=== PATIENT | female | born 1945 | race Hispanic/Latino ===

== ENCOUNTER 2020-07-08 23:31 | Emergency (ER) | payer MEDICARE ==
[~2020-07-08] VITALS: Ht 320 cm; Wt 81.6 kg
[~2020-07-08 23:31] MED LIST: ACETAMINOPHEN-1 EAC4; ALPRAZOLAM0.5 MG; ASPIRIN EC81 MG PO; CARVEDILOL25 MG; CEFUROXIME250 MG PO; CIPRO250 MG PO; CLOPIDOGREL75 MG; COREG12.5 MG PO; DICYCLOMINE HCL10 MG; Diphenhydramine Hcl PO; FAMOTIDINE20 MG PO; FLAGYL250 MG; GABAPENTIN400 MG PO; GABAPENTIN800 MG; HYDRALAZINE HCL50 MG PO; METFORMIN HCL500 MG PO; METOCLOPRAMIDE10 MG PO; NIFEDIPINE ER30 M1 PO; NIFEDIPINE ER30 MG; NITRO-BID1 GM TOP; RANITIDINE HCL150 MG; SERTRALINE HCL100 MG; SPIRONOLACTONE50 MG; TIZANIDINE HCL4 MG; TRAZODONE HCL50 MG
[2020-07-08] MEDS ORDERED: ONDANSETRON HCL INJ 2MG/ML 2ML 2 MG/ML VIAL IV STA (23:38)
[2020-07-08] MEDS ORDERED: ASPIRIN 81 MG CHEW TAB PO ONE (23:45)
[2020-07-09 00:06] LABS: BASOPHILS # (AUTO) 0.1 (0.0-0.1); BASOPHILS % 0.7 % (0.0-1.0); EOSINOPHILS # (AUTO) 0.1 (0.0-0.4); EOSINOPHILS % 1.3 % (0.0-6.0); HEMATOCRIT 41.9 % (34.2-44.1); HEMOGLOBIN 14.3 g/dL (12.0-16.0); LYMPHOCYTES # (AUTO) 2.5 (1.0-3.2); LYMPHOCYTES % 32.9 % (18.0-39.1); MEAN CORPUSCULAR HEMOGLOBIN 29.4 pg (28-32); MEAN CORPUSCULAR HGB CONC 34.1 g/dL (31-35); MEAN CORPUSCULAR VOLUME 86.2 fL (81-99); MONOCYTES # (AUTO) 0.5 (0.2-0.8); NEUTROPHILS # (AUTO) 4.4 (2.1-6.9); NEUTROPHILS % 57.7 % (38.7-80.0); PLATELET COUNT 200 x10e3/uL (140-360); RED BLOOD COUNT 4.86 x10e6/uL (3.6-5.1); RED CELL DISTRIBUTION WIDTH 17.1 % (11.7-14.4)
[2020-07-09] MEDS ORDERED: ONDANSETRON HCL INJ 2MG/ML 2ML 2 MG/ML VIAL IV STA ×2 (00:08→00:16)
[2020-07-09 00:23] LABS: ALBUMIN/GLOBULIN RATIO 1.2 (0.8-2.0); ANION GAP 19.8 mmol/L (8-16); CALCIUM 9.7 mg/dL (8.4-10.2); CREATININE, SERUM 0.97 mg/dL (0.57-1.11); POTASSIUM 3.8 mmol/L (3.5-5.1)
[2020-07-09 00:25] LABS: CREATINE KINASE MB 1.3 ng/mL (0-5.0)
[2020-07-09] MEDS ORDERED: ONDANSETRON HCL INJ 2MG/ML 2ML 2 MG/ML VIAL ONE (00:28)
[2020-07-09 01:22] LABS: BILIRUBIN,URINE MODERATE (NEGATIVE); COLOR,URINE YELLOW (YELLOW); KETONES,URINE TRACE (NEGATIVE); LEUKOCYTE ESTERASE ,URINE NEGATIVE (NEGATIVE); NITRITE,URINE NEGATIVE (NEGATIVE); PROTEIN,URINE DIPSTICK 2+ (NEGATIVE); URINE UROBILINOGEN 0.2 mg/dL (0.2 - 1)
[2020-07-09 01:25] LABS: BACTERIA,URINE FEW /HPF; CLARITY,URINE SL CLOUDY (CLEAR); EPITHELIAL CELLS,URINE MANY /LPF; RBC,URINE 0-5 /HPF (0-5)
[2020-07-09 01:30] LABS: AMPHETAMINES SCREEN,URINE NEGATIVE (NEGATIVE); BENZODIAZEPINES SCREEN,URINE NEGATIVE (NEGATIVE); PHENCYCLIDINE SCREEN,URINE NEGATIVE (NEGATIVE)
== END 2020-07-09 02:40 | disposition home or self-care (01) ==
LOC: ER 23:33
DX: R07.89 Other chest pain (principal); R11.2 Nausea with vomiting, unspecified; F15.10 Other stimulant abuse, uncomplicated; F12.10 Cannabis abuse, uncomplicated; R94.31 Abnormal electrocardiogram [ECG] [EKG]; I10 Essential (primary) hypertension; E11.9 Type 2 diabetes mellitus without complications; E78.00 Pure hypercholesterolemia, unspecified; F17.210 Nicotine dependence, cigarettes, uncomplicated
CPT/HCPCS: 36415; 70450; 71045; 80053; 80307; 81001; 82550; 82553; 83690; 83880; 84484; 85025; 93005; 99284; J2405